=== PATIENT | female | born 1945 | race Caucasian/White ===

== ENCOUNTER → 2022-01-17 | Outpatient (CLI) | payer MEDICARE | LOC: M RAD 09:09 | PROVIDERS: ATTEND Internal Medicine Nephrology | DX: N18.32 Chronic kidney disease, stage 3b (principal); I70.1 Atherosclerosis of renal artery ==

== ENCOUNTER 2024-04-29 09:16 | Day surgery (SDC) | payer MEDICARE ==
[~2024-04-29] VITALS: Ht 154.9 cm; Wt 46.6 kg
[2024-04-29] MEDS: LIDOCAINE 3.5 % 1ML OPHTH TOPICAL GEL OU ONE (06:00)
[2024-04-29] MEDS: OFLOXACIN 0.3 % (OCUFLOX) OPTH SOL 5ML OD ONE (06:00)
[~2024-04-29 09:16] MED LIST: ACE65ERTAB PO; CYCL-707 PO; GABA-1171 PO; PHENYLEPHRINE 10% OPHTH SOL 5ML OD PRN
[2024-04-29] MEDS: PHENYLEPHRINE 2.5% OPHTH SOL 2ML OD SCH (09:55)
[2024-04-29] MEDS: TROPICAMIDE 1% OPHTH SOLN 15ML OD SCH (09:55)
[2024-04-29] MEDS: CYCLOPENTOLATE 1% OPHTH SOLN 2ML BTL OD SCH (09:55)
[2024-04-29] MEDS ORDERED: MIDAZOLAM INJ 2MG/2ML VIAL As Ordered ONE (10:19)
[2024-04-29] MEDS ORDERED: fentaNYL 100 MCG/2 ML INJECTION As Ordered ONE (10:19)
[2024-04-29] MEDS: CEFUROXIME 1MG/0.1ML INTRACAMERAL INJ As Ordered ONE (11:31)
[2024-04-29] MEDS: LIDOCAINE 1% SDV 5ML VIAL As Ordered ONE (11:31)
[2024-04-29] MEDS: BSS IRRIG/VANCO(10MG)/TOBRA(5MG)/EPINEPH(1:1000-0.5CC)500ML BAG-ORONLY As Ordered ONE (11:31)
[2024-04-29 11:42] VITALS: BP 148/65; TEMP 97.7; O2SAT 98
== END 2024-04-29 11:57 | disposition home or self-care (01) ==
LOC: M SDC 09:16
PROVIDERS: ATTEND Ophthalmology
DX: H25.11 Age-related nuclear cataract, right eye (principal); M81.0 Age-related osteoporosis without current pathological fracture; M48.50XA Collapsed vertebra, not elsewhere classified, site unspecified, initial encounter for fracture; Z79.899 Other long term (current) drug therapy
CPT/HCPCS: 66984; J0697; J2250; J3010; V2632

== ENCOUNTER 2024-05-06 06:56 | Day surgery (SDC) | payer MEDICARE ==
[~2024-05-06] VITALS: Ht 154.9 cm; Wt 45.7 kg
[~2024-05-06 06:56] MED LIST changes: -PHENYLEPHRINE 10% OPHTH SOL 5ML OD PRN; +PHENYLEPHRINE 10% OPHTH SOL 5ML OS PRN
[2024-05-06] MEDS ORDERED: fentaNYL 100 MCG/2 ML INJECTION As Ordered ONE (07:20)
[2024-05-06] MEDS ORDERED: MIDAZOLAM INJ 2MG/2ML VIAL As Ordered ONE (07:20)
[2024-05-06] MEDS: TROPICAMIDE 1% OPHTH SOLN 15ML OS SCH (07:32)
[2024-05-06] MEDS: PHENYLEPHRINE 2.5% OPHTH SOL 2ML OS SCH (07:32)
[2024-05-06] MEDS: CYCLOPENTOLATE 1% OPHTH SOLN 2ML BTL OS SCH (07:32)
[2024-05-06] MEDS: OFLOXACIN 0.3 % (OCUFLOX) OPTH SOL 5ML OS ONE (07:32)
[2024-05-06] MEDS: LIDOCAINE 3.5 % 1ML OPHTH TOPICAL GEL OU ONE (07:32)
[2024-05-06] MEDS: LIDOCAINE 1% SDV 5ML VIAL As Ordered ONE (09:06)
[2024-05-06] MEDS: CEFUROXIME 1MG/0.1ML INTRACAMERAL INJ As Ordered ONE (09:09)
[2024-05-06] MEDS: BSS IRRIG/VANCO(10MG)/TOBRA(5MG)/EPINEPH(1:1000-0.5CC)500ML BAG-ORONLY As Ordered ONE (09:09)
[2024-05-06 09:23] VITALS: BP 141/64; TEMP 98.2; O2SAT 98
== END 2024-05-06 09:35 | disposition home or self-care (01) ==
LOC: M SDC 06:56
PROVIDERS: ATTEND Ophthalmology
DX: H25.12 Age-related nuclear cataract, left eye (principal); M81.0 Age-related osteoporosis without current pathological fracture; Z79.899 Other long term (current) drug therapy; Z88.2 Allergy status to sulfonamides; Z88.8 Allergy status to other drugs, medicaments and biological substances
CPT/HCPCS: 66984; J0697; J2250; J3010; V2632